=== PATIENT | female | born 1995 | race Caucasian/White ===

== ENCOUNTER 2018-08-30 03:17 | Inpatient (IN) | payer OTHER ==
[2018-08-30] MEDS ORDERED: RINGERS SOLUTION,LACTATED 1,000 ML IV PRN (03:39)
[2018-08-30] MEDS ORDERED: OXYTOCIN 10 UNIT/ML VIAL ONE (04:01)
[2018-08-30] MEDS ORDERED: LIDOCAINE 1% INJ-PF (10 MG/ML) 30 ML SDV ONE (04:02)
[2018-08-30] MEDS ORDERED: MISOPROSTOL 0.2 MG TABLET ONE (04:02)
[2018-08-30] MEDS ORDERED: OXYTOCIN/NORMAL SALINE 20 UNIT/1,000 ML RTUINJ ONE (04:02)
[2018-08-30 04:21] LABS: ABSOLUTE BASOPHILS # (AUTO) 0.1 10^3/uL (0.0-0.2); ABSOLUTE LYMPHOCYTES (AUTO) 2.1 10^3/uL (0.5-4.7); ABSOLUTE NEUT (AUTO) 9.5 10^3/uL (1.7-8.2); BASOPHILS % (AUTO) 0.8 % (0-2); EOSINOPHILS % (AUTO) 0.2 % (0-6); HEMATOCRIT 34.8 % (36.0-47.0); LYMPHOCYTES % (AUTO) 16.4 % (13-45); MEAN CORPUSCULAR HEMOGLOBIN 29.3 pg (27.0-33.4); MEAN CORPUSCULAR HGB CONC 34.4 g/dL (32.0-36.0); MEAN CORPUSCULAR VOLUME 85 fl (80-97); MONOCYTES % (AUTO) 7.7 % (3-13); PLATELET COUNT 188 10^3/uL (150-450); RED BLOOD COUNT 4.08 10^6/uL (3.72-5.28); RED CELL DISTRIBUTION WIDTH 13.4 % (11.5-14.0); SEGMENTED NEUTROPHILS % (AUTO) 74.9 % (42-78); TOTAL CELLS COUNTED % (AUTO) 100 %; WHITE BLOOD COUNT 12.7 10^3/uL (4.0-10.5)
[2018-08-30 04:39] LABS: URINE AMPHETAMINES SCREEN NEGATIVE; URINE BARBITURATES SCREEN NEGATIVE; URINE BENZODIAZEPINES SCREEN NEGATIVE; URINE COCAINE SCREEN NEGATIVE; URINE MARIJUANA (THC) SCREEN NEGATIVE; URINE METHADONE SCREEN NEGATIVE; URINE PHENCYCLIDINE SCREEN NEGATIVE
[2018-08-30] MEDS ORDERED: EPHEDRINE SULFATE INJ 50 MG/1 ML AMPULE ONE (07:21)
[2018-08-30] MEDS ORDERED: BUPIVACAINE HCL 0.5 % INJ/PF 30 ML SDV ONE (07:22)
[2018-08-30] MEDS ORDERED: FENTANYL/BUPIVACAINE/NS/PF 300 MCG/150 ML RTUINJ EPI ONE (07:22)
[2018-08-30] MEDS ORDERED: BUPIVACAINE HCL 0.25 % INJ/PF (2.5 MG/1 ML) 30 ML VIAL ONE (08:02)
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
[2018-08-30] MEDS ORDERED: OXYTOCIN/NORMAL SALINE 20 UNIT/1,000 ML RTUINJ IV PRN ×2 (12:35→20:04)
[2018-08-30] MEDS ORDERED: IBUPROFEN 800 MG TABLET ONE (17:43)
[2018-08-30] MEDS ORDERED: MEASLES,MUMPS&RUBELLA VACC/PF 0.5 ML VIAL SUBCUT PRN (20:04)
[2018-08-30] MEDS ORDERED: ACETAMINOPHEN WITH CODEINE #3 TABLET PO PRN ×2 (20:04)
[2018-08-30] MEDS ORDERED: DIBUCAINE 1% OINTMENT 28 GM TP PRN (20:04)
[2018-08-30] MEDS ORDERED: ZOLPIDEM TARTRATE 5 MG TABLET PO PRN (20:04)
[2018-08-30] MEDS ORDERED: DIPH/PERTUSS(ACELL)/TETANUS VAC/PF 0.5 ML SYR (>=10YO) IM PRN (20:04)
[2018-08-31] MEDS: DOCUSATE SODIUM 100 MG CAPSULE PO SCH ×3 (06:26→18:08)
[2018-08-31] MEDS: FERROUS SULFATE 325 MG TABLET PO SCH ×3 (06:26→18:08)
[2018-08-31] MEDS: IBUPROFEN 800 MG TABLET PO SCH ×4 (06:27→22:45)
[2018-08-31 07:34] LABS: HEMATOCRIT 32.8 % (36.0-47.0); HEMOGLOBIN 11.1 g/dL (12.0-15.5); MEAN CORPUSCULAR HEMOGLOBIN 29.5 pg (27.0-33.4); MEAN CORPUSCULAR HGB CONC 33.8 g/dL (32.0-36.0); MEAN CORPUSCULAR VOLUME 87 fl (80-97); PLATELET COUNT 184 10^3/uL (150-450); RED BLOOD COUNT 3.75 10^6/uL (3.72-5.28); RED CELL DISTRIBUTION WIDTH 13.3 % (11.5-14.0); WHITE BLOOD COUNT 15.5 10^3/uL (4.0-10.5)
--- NOTE | 2018-08-31 09:01 | PDOC PROGRESS REPORT ---
Subjective-OB Progress Note for:: 08/31/18 - PP Day #1, doing well, , A+ Rubella Immune, Physical Exam (OB) Vital Signs: Temp Pulse Resp BP Pulse Ox 98.3 F 87 16 120/73 97 08/30/18 23:38 08/30/18 23:38 08/30/18 23:38 08/30/18 23:38 08/30/18 23:38 Intake & Output 08/30/18 08/31/18 09/01/18 06:59 06:59 06:59 Intake Total 1000 Balance 1000 Weight 97 kg - General General Appearance: Appears well, Alert In distress: None - Lochia Lochia Amount: Small 10-25 ml Lochia Color: Rubra/Red - Abdomen Description: Soft, Round Hernia Present: No Fundal Description: Firm, Midline Fundal Height: u/u - u/2 - HEENT Head: Normocephalic Eyes: Normal Mucous membrane: Normal - Respiratory Respiratory Status: No respiratory distress - Abdominal Inspection: Normal Distension: No distension - Genitourinary Female External exam: Normal Genitourinary Note: voiding - Extremities Upper extremity: Normal inspection Lower extremities: Other - trace edema - Neurological Cognition: Normal Orientation: AAOx4 - Psychological Associated symptoms: Normal affect, Normal mood - Skin Skin Temperature: Warm Skin Moisture: Dry Objective-Diagnostic Laboratory: 08/31/18 06:56 08/31/18 06:56 WBC 15.5 H RBC 3.75 Hgb 11.1 L Hct 32.8 L MCV 87 MCH 29.5 MCHC 33.8 RDW 13.3 Plt Count 184 Assessment and Plan(PN) - Assessment and Plan (1) Normal course Is this a current diagnosis for this admission?: Yes (2) Vaginal delivery Is this a current diagnosis for this admission?: Yes - Time Spent with Patient Time with patient: Less than 15 minutes - Disposition Anticipated Discharge: Home Within: within 24 hours
--- NOTE | 2018-08-31 09:42 | Delivery Summary ---
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 Unwrapped, infant with spont cry and tone, placed on maternal abd. Cord clamped x2 cut per FOB. Placenta via reddy, intact. Lacerations repaired. Hemostasis acheived. Mother and infant stable. LABOR SUMMARY EDC: 08/28/2018 00:00 No. Babies in Womb: 1 No. Babies in Womb: 1 Attempted: No Labor Anesthesia: Epidural LABOR INFORMATION Reason for Induction: Postterm Onset of Labor: 08/30/2018 04:30 Complete Dilatation: 08/30/2018 15:58 Oxytocin: Augmentation Group B Beta Strep: Negative Antibiotics # of Doses: 0 Steroids Given: None Reason Steroids Not Administered: Not Applicable MEMBRANES Membranes Rupture Method: Spontaneous Membranes Rupture Method: Spontaneous Rupture of Membranes: 08/30/2018 03:00 Length of Rupture (hr): 13.62 Amniotic Fluid Color: Clear Amniotic Fluid Color: Clear Amniotic Fluid Amount: Moderate Amniotic Fluid Amount: Moderate Amniotic Fluid Odor: Normal STAGES OF LABOR Stage 1 hr: 11 Stage 1 min: 28 Stage 2 hr: 0 Stage 2 min: 39 Stage 3 hr: 0 Stage 3 min: 10 Total Time in Labor hr: 12 Total Time in Labor min: 17 VAGINAL DELIVERY Laceration #1: Perineal Laceration Extension #1: Second Degree Other Laceration: 1 *bilateral labial Laceration Repair: Yes Laceration Repair Note: Perineal repair with 2.0 chromic, lidocaine used labial repairs with 2.0 chromic, lidocaine used BABY A INFORMATION Delivery Date/Time: 08/30/2018 16:37 Method of Delivery: Vaginal Born in Route : No : N/A Forceps: N/A Vacuum Extraction: N/A Shoulder Dystocia : No PRESENTATION/POSITION BABY A Presentation: Cephalic PLACENTA INFORMATION BABY A Placenta Delivery Time : 08/30/2018 16:47 Placenta Method of Delivery: Spontaneous Placenta Status: Delivered SCORES BABY A Heart Rate 1 min: >100 bpm Resp Effort 1 min: Good Cry Reflex Irritability 1 min: Cough or Sneeze or Pulls Away Muscle Tone 1 min: Active Motion Color 1 min: Blue/Pale SCORE 1 MIN: 8 Heart Rate 5 min: >100 bpm Resp Effort 5 min: Good Cry Reflex Irritability 5 min: Cough or Sneeze or Pulls Away Muscle Tone 5 min: Active Motion Color 5 min: Body [place], Extremities Blue SCORE 5 MIN: 9 INFANT INFORMATION BABY A Gestational Age at Delivery: 40.2 Gestational Status: Full Term- 39- 40.6 Weeks Infant Outcome : Liveborn Infant Condition : Stable Sex: Male IDENTIFICATION BABY A Verification Date/Time: 08/30/2018 16:43 ID Band Number: [id number] Mother's Name Verified: Yes RN Verifying : Frank Additional Verifying Personnel: S Brown WEIGHT/LENGTH BABY A Birthweight (gm): 3810 Weight (lb): 8 Infant Weight (oz): 6 Infant Length (in): 21.25 Length (cm): 53.98 CORD INFORMATION BABY A No. 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
[2018-08-31] MEDS: SENNOSIDES/DOCUSATE 8.6-50 MG 1 EACH TABLET PO SCH (10:29)
[2018-08-31] MEDS: PRENATAL VITAMIN W DHA CAPSULE PO SCH (10:29)
[2018-09-01] MEDS: IBUPROFEN 800 MG TABLET PO SCH (05:18)
[2018-09-01 08:24] VITALS: BP 119/79
--- NOTE | 2018-09-01 08:38 | PDOC PROGRESS REPORT ---
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, hsb is now anxious after delivery because of nuchal cord, they both worry about everything, breast feeding, voiding Physical Exam (OB) Vital Signs: Temp Pulse Resp BP Pulse Ox 98.4 F 87 16 119/79 98 09/01/18 07:36 09/01/18 07:36 09/01/18 07:36 09/01/18 07:36 09/01/18 07:36 Intake & Output 08/31/18 09/01/18 09/02/18 06:59 06:59 06:59 Intake Total 1000 400 Balance 1000 400 - PIH/Pre-Eclampsia DTR's: 1 + Clonus: Negative Headache: Absent Epigastric Pain: No Visual Changes: No - Lochia Lochia Amount: Small 10-25 ml Lochia Color: Rubra/Red - Abdomen Description: Soft, Round Hernia Present: No Fundal Description: Firm, Midline Fundal Height: u/u - u/2 Objective-Diagnostic Laboratory: 08/31/18 06:56 Assessment and Plan(PN) - Assessment and Plan (1) Depression Qualifiers: Depression Type: unspecified Qualified Code(s): F32.9 - Major depressive disorder, single episode, unspecified Is this a current diagnosis for this admission?: Yes (2) Anxiety Is this a current diagnosis for this admission?: Yes (3) Normal course Is this a current diagnosis for this admission?: Yes (4) Vaginal delivery Is this a current diagnosis for this admission?: Yes - Time Spent with Patient Time with patient: Less than 15 minutes Medications reviewed and adjusted accordingly: Yes - Disposition Anticipated Discharge: Home Within: within 24 hours
--- NOTE | 2018-09-01 08:42 | PDOC DISCHARGE SUMMARY ---
Final Diagnosis Discharge Date: 09/01/18 - Final Diagnosis (1) Depression Is this a current diagnosis for this admission?: Yes (2) Anxiety Is this a current diagnosis for this admission?: Yes (3) Normal course Is this a current diagnosis for this admission?: Yes (4) Vaginal delivery Is this a current diagnosis for this admission?: Yes Discharge Data - Discharge Medication Home Medications: Folic Acid [Folvite 1 mg Tablet] 1 mg PO DAILY 08/30/18 Vits96/Iron Fum/Folic [ Tablet] 1 each PO DAILY 08/30/18 Ferrous Sulfate [Feosol 325 mg Tablet] 325 mg PO BID tablet 09/01/18 Ibuprofen [Motrin 800 mg Tablet] 800 mg PO Q8 tablet 09/01/18 Gestational Age: 40.2 Reason(s) for Admission: PROM Admission Note: augmented with Pitocin Procedures: NST, Ultrasound Intrapartum Procedure(s): Spontaneous Vaginal Delivery Complication(s): Laceration-Perineal, Laceration-Labial Laceration-Degree: 2nd - Data Baby 1 Male Home with Mother: Yes Complications: No - Diagnosis Test Laboratory: Temp Pulse Resp BP Pulse Ox 98.4 F 87 16 119/79 98 09/01/18 07:36 09/01/18 07:36 09/01/18 07:36 09/01/18 07:36 09/01/18 07:36 08/30/18 08/30/18 08/31/18 03:25 04:00 06:56 RBC 4.08 3.75 Hgb 12.0 11.1 L Hct 34.8 L 32.8 L Urine Opiates Screen NEGATIVE - Discharge information/Instructions Discharge Activity: Activity As Tolerated, No Lifting Over 10 Pounds, No Lifting/Push/Pulling, Pelvic Rest Discharge Diet: As Tolerated, Regular Disposition: HOME, SELF-CARE Follow up with: [facility] in: 2, Weeks
[2018-09-01] MEDS: FERROUS SULFATE 325 MG TABLET PO SCH (10:19)
[2018-09-01] MEDS: PRENATAL VITAMIN W DHA CAPSULE PO SCH (10:19)
[2018-09-01] MEDS: DOCUSATE SODIUM 100 MG CAPSULE PO SCH (10:19)
[2018-09-01] MEDS: SENNOSIDES/DOCUSATE 8.6-50 MG 1 EACH TABLET PO SCH (10:19)
== END 2018-09-01 13:30 | disposition home or self-care (01) | DRG 807 ==
LOC: LC 03:17 → LR 03:46 → 2S 20:05
PROVIDERS: ADMIT Obstetrics & Gynecology; ATTEND Obstetrics & Gynecology
PROC: 10E0XZZ Delivery of Products of Conception, External Approach (ICD-10-PCS; principal; 2018-08-30)
PROC: 0KQM0ZZ Repair Perineum Muscle, Open Approach (ICD-10-PCS; 2018-08-30)
PROC: 0UQMXZZ Repair Vulva, External Approach (ICD-10-PCS; 2018-08-30)
PROC: 3E0234Z Introduction of Serum, Toxoid and Vaccine into Muscle, Percutaneous Approach (ICD-10-PCS; 2018-09-01)
DX: O69.1XX0 Labor and delivery complicated by cord around neck, with compression, not applicable or unspecified (principal); Z37.0 Single live birth; O48.0 Post-term pregnancy; O99.344 Other mental disorders complicating childbirth; F41.8 Other specified anxiety disorders; O70.1 Second degree perineal laceration during delivery; Z3A.40 40 weeks gestation of pregnancy; Z23 Encounter for immunization
CPT/HCPCS: 36415; 80307; 85025; 85027; 86592; 86850; 86900; 86901; 90471; 90686; 94760; G0008; J2590; J3010; J3490